=== PATIENT | female | born 1960 ===

== ENCOUNTER → 2018-02-27 21:12 | Outpatient (REF) | payer OTHER, SELFPAY ==
[2018-02-27 21:18] LABS: Bacteria Urine None Seen; WBC Urine None Seen (0-5/HPF)
[2018-02-27 22:09] LABS: Add Manual Diff / Slide Review NO; Basophils Percent Auto 0.6 % (0-2); Eosinophils Percent Auto 1.3 % (2-4); Hematocrit 43.6 % (36-46); Hemoglobin 14.6 g/dL (12.0-16.0); Lymphocytes Percent Auto 32.3 % (25-40); Mean Corpuscular HGB Conc 33.4 % (30-36); Mean Corpuscular Hemoglobin 31.1 PG (26-34); Mean Corpuscular Volume 93.1 fL (80-100); Neutrophils Absolute Auto 3300 /uL (1500-7000); Neutrophils Percent Auto 57.8 % (50-75); Platelet Count 209 X10^3/uL (150-400); Red Blood Cell Count 4.69 X10^6/uL (4.0-5.2); Red Cell Distribution Width 13.5 % (11.6-14.8); White Blood Cell Count 5.6 X10^3/uL (4.5-11.0)
[2018-02-27 22:18] LABS: Appearance Urine UA CLEAR; Bilirubin Urine UA NEGATIVE (NEGATIVE); Color Urine UA YELLOW; Glucose Urine UA NEGATIVE (Negative); Ketones Urine UA TRACE (NEGATIVE); Leukocyte Esterase Urine UA NEGATIVE (NEGATIVE); Nitrite Urine UA NEGATIVE (Negative); Occult Blood Urine UA 1+ (Negative); Protein Urine UA NEGATIVE (Negative); Urobilinogen Urine UA 0.2 E.U./dL (0.2)
[2018-02-27 22:25] LABS: Alanine Aminotransferase 21 IU/L (9-52); Albumin Globulin Ratio 1.6 (1.0-2.8); Alkaline Phosphatase 43 U/L (38-126); Aspartate Aminotransferase 29 IU/L (14-36); BUN Creatinine Ratio 21.4 (6-22); Bilirubin Total 0.7 mg/dL (0.2-1.3); Blood Urea Nitrogen 15 mg/dL (7-17); Calcium 9.9 mg/dL (8.4-10.2); Carbon Dioxide 28 mmol/L (22-32); Chloride 100 mmol/L (98-107); Cholesterol 271 mg/dL (140-199); Estimated Glomerular Filt Rate > 60.0 mL/min (>60); Globulin 3.2 g/dL (1.7-4.1); Glucose 94 mg/dL (70-100); Potassium 4.5 mmol/L (3.4-5.1); Sodium 140 mmol/L (137-145); Total Protein 8.2 g/dL (6.3-8.2); Triglycerides 62 mg/dL (35-150)
[2018-02-27 22:27] LABS: RBC Urine 0-1/HPF (0-5/HPF); Squamous Epithelial Cell Urine 1-5 /HPF
[2018-02-27 22:28] LABS: Culture Indicated Urine Cult Not Indicated
[2018-02-27 22:32] LABS: HEMOLYSIS 17 (0-50)
[2018-02-27 22:58] LABS: HDL Cholesterol 117 mg/dL (40-60); LDL Cholesterol Calculated 142 mg/dL (<100)
[2018-02-27 23:18] LABS: HEMOLYSIS < 15 (0-50); Iron 212 ug/dL (37-170)
[2018-02-27 23:30] LABS: Total Iron Binding Capacity 342 ug/dL (265-497)
[2018-02-27 23:31] LABS: Percent Iron Saturation 62 % (15-50); Transferrin 315 mg/dL (206-381); Vitamin D 25 Hydroxy (D3) 65.9 ng/mL (30.0-100.0)
[2018-02-27 23:39] LABS: Free T3, Triiodothyronine Free 3.29 pg/mL (2.77-5.27); T4 Total Thyroxine 6.94 ug/dL (5.5-11.0)
[2018-02-27 23:52] LABS: Thyroid Stimulating Hormone 2.06 uIU/mL (0.47-4.68)
[2018-02-28 01:15] LABS: Vitamin B12 647 pg/mL (239-931)
[2018-02-28 06:27] LABS: Folate > 20.0 ng/mL (2.76-20.0)
[2018-03-01 15:58] LABS: Progesterone 5.1 ng/mL
[2018-03-03 21:12] LABS: Estrogen 187.5 pg/mL
== END ==
LOC: LAB 21:12
PROVIDERS: Visit Provider Naturopath
DX: D50.9 Iron deficiency anemia, unspecified (principal); N95.1 Menopausal and female climacteric states; M54.30 Sciatica, unspecified side; L65.9 Nonscarring hair loss, unspecified
CPT/HCPCS: 36415; 80053; 80061; 81001; 82306; 82607; 82672; 82746; 83540; 83550; 84144; 84207; 84436; 84443; 84481; 85025